=== PATIENT | female | born 1990 | race Caucasian/White ===

== ENCOUNTER 2018-11-28 20:56 | Emergency (ER) | payer MEDICAID, OTHER ==
[2018-11-28] MEDS ORDERED: KETOROLAC 30 MG/1 ML SDV IVP ONE (21:04)
[2018-11-28] MEDS ORDERED: NS 1,000 ML IV ONE (21:04)
[2018-11-28] MEDS ORDERED: DEXAMETHASONE 10 MG/ML VIAL IVP ONE (21:04)
--- NOTE | 2018-11-28 21:04 | EDPHY ---
H & P Stated Complaint: migraine all day, vomiting x2 hours Time Seen by Provider: 11/28/18 21:04 HPI/ROS: HPI CHIEF COMPLAINT: "I am having a migraine headache" HISTORY OF PRESENT ILLNESS: Patient is a 28-year-old female, she has a history of migraine headaches she presents emergency room with a frontal throbbing headache. She reports to me this feels exactly like her previous migraines. She gets this 2 to 3 times a year. She suffered from migraine headaches for many years. She states she woke up with this headache this morning. Gradually getting worse throughout the day frontal throbbing. She has associated nausea with it. She denies any neck pain, denies fever, denies visual disturbance or double vision. This is not the worst headache of her life. She denies thunderclap headache. It did not reach high intensity immediately, it was gradually getting worse. She took her tramadol that she normally takes for headache however this did not much improved her symptoms. She reports to me she has not had any neurological imaging in many many years. Past Medical History: Migraine headaches Past Surgical History: Denies recent surgical history Social History: Denies daily use of drugs alcohol tobacco. Family History: Noncontributory ROS REVIEW OF SYSTEMS: 10 Systems were reviewed and negative with the exception of the elements mentioned in the history of present illness. Exam Constitutional triage nursing summary reviewed, vital signs reviewed, awake/ alert. Eyes normal conjunctivae and sclera, EOMI, PERRLA. HENT normal inspection, atraumatic, moist mucus membranes, no epistaxis, neck supple/ no meningismus, no raccoon eyes. Respiratory clear to auscultation bilaterally, normal breath sounds, no respiratory distress, no wheezing. Cardiovascular rate normal, regular rhythm, no murmur, no edema, distal pulses normal. Gastrointestinal soft, non-tender, no rebound, no guarding, normal bowel sounds, no distension, no pulsatile mass. Genitourinary no CVA tenderness. Musculoskeletal no midline vertebral tenderness, full range of motion, no calf swelling, no tenderness of extremities, no meningismus, good pulses, neurovascularly intact. Skin pink, warm, & dry, no rash, skin atraumatic. Neurologic unremarkable neurological exam no focal neuro deficits on exam, awake, alert and oriented x 3, AAOx3, moves all 4 extremities equally, motor intact, sensory intact, CN II-XII intact, normal cerebellar, normal vision, normal speech. Psychiatric normal mood/affect. Heme/Lymph/Immune no lymphadenopathy. Differential Diagnosis: Includes but is not limited to in a particular order migraine headache, tension headache, cluster headache, encephalitis, meningitis , bleed Medical Decision Making: Plan for this patient IV establishment IV fluid bolus , migraine cocktail, CT scan head without contrast, basic labs, and re-evaluate. Re-evaluation: CT scan head without contrast negative for acute bleed or tumor. Called to me by Dr. Jones. Source: Patient - Personal History LMP (Females 10-55): Irregular Current Tetanus Diphtheria and Acellular Pertussis (TDAP): Yes - Medical/Surgical History Hx Asthma: No Hx Chronic Respiratory Disease: No Hx Diabetes: No Hx Cardiac Disease: No Hx Renal Disease: No Hx Cirrhosis: No Hx Alcoholism: No Hx HIV/AIDS: No Hx Splenectomy or Spleen Trauma: No Other PMH: Migraines - Social History Smoking Status: Never smoked Constitutional: Initial Vital Signs Temperature (C) 36.8 C 11/28/18 20:57 Heart Rate 82 11/28/18 20:57 Respiratory Rate 16 11/28/18 20:57 Blood Pressure 124/62 H 11/28/18 20:57 O2 Sat (%) 97 11/28/18 20:57 O2 Delivery Mode Room Air Allergies/Adverse Reactions: No Known Allergies Allergy (Unverified 11/28/18 21:00) Home Medications: Medication Instructions Recorded DULoxetine 11/28/18 Ibuprofen [Motrin (*)] 800 mg PO Q6-8PRN #10 tab 11/28/18 Methylphenidate 11/28/18 Promethazine HCl 25 mg PO Q6-8PRN PRN #10 tablet 11/28/18 Medical Decision Making - Diagnostics Imaging Results: Imaging Impressions Head CT 11/28/18 21:08 Impression: No acute intracranial findings. If symptoms persist and clinical suspicion warrants, consider MRI. Findings discussed with Alejandro Soria MD 11/28/2018 at 21:42. - Data Points Laboratory Results: Laboratory Results 11/28/18 21:12 11/28/18 21:12 11/28/18 11/28/18 11/28/18 21:12 21:12 21:12 WBC 11.46 10^3/uL H 10^3/uL (3.80-9.50) RBC 4.93 10^6/uL 10^6/uL (4.18-5.33) Hgb 15.1 g/dL g/dL (12.6-16.3) Hct 44.9 % % (38.0-47.0) MCV 91.1 fL fL (81.5-99.8) MCH 30.6 pg pg (27.9-34.1) MCHC 33.6 g/dL g/dL (32.4-36.7) RDW 12.9 % % (11.5-15.2) Plt Count 313 10^3/uL 10^3/uL (150-400) MPV 9.3 fL fL (8.7-11.7) Neut % (Auto) 61.6 % % (39.3-74.2) Lymph % (Auto) 28.0 % % (15.0-45.0) [place] % (Auto) 8.6 % % (4.5-13.0) Eos % (Auto) 1.0 % % (0.6-7.6) Baso % (Auto) 0.5 % % (0.3-1.7) Nucleat RBC Rel Count 0.0 % % (0.0-0.2) Absolute Neuts (auto) 7.05 10^3/uL H 10^3/uL (1.70-6.50) Absolute Lymphs (auto) 3.21 10^3/uL H 10^3/uL (1.00-3.00) Absolute Monos (auto) 0.98 10^3/uL H 10^3/uL (0.30-0.80) Absolute Eos (auto) 0.12 10^3/uL 10^3/uL (0.03-0.40) Absolute Basos (auto) 0.06 10^3/uL 10^3/uL (0.02-0.10) Absolute Nucleated RBC 0.00 10^3/uL 10^3/uL (0-0.01) Immature Gran % 0.3 % % (0.0-1.1) Immature Gran # 0.04 10^3/uL 10^3/uL (0.00-0.10) Sodium 138 mEq/L mEq/L (135-145) Potassium 4.0 mEq/L mEq/L (3.5-5.2) Chloride 105 mEq/L mEq/L (97-110) Carbon Dioxide 19 mEq/l L mEq/l (22-31) Anion Gap 14 mEq/L mEq/L (6-14) BUN 14 mg/dL mg/dL (7-23) Creatinine 0.7 mg/dL mg/dL (0.6-1.0) Estimated GFR > 60 Glucose 114 mg/dL H mg/dL (70-100) Calcium 10.0 mg/dL mg/dL (8.5-10.4) Beta HCG, Qual NEGATIVE Medications Given: Discontinued Medications Dexamethasone (Decadron Injection) 10 mg IVP EDNOW ONE Stop: 11/28/18 21:05 Last Admin: 11/28/18 21:09 Dose: 10 mg Diphenhydramine HCl (Benadryl Injection) 50 mg IVP EDNOW ONE Stop: 11/28/18 21:05 Last Admin: 11/28/18 21:09 Dose: 50 mg Sodium Chloride (Ns) 1,000 mls @ 0 mls/hr IV ONCE ONE; Wide Open PRN Reason: Protocol Stop: 11/28/18 21:05 Last Admin: 11/28/18 21:09 Dose: 1,000 mls Ketorolac Tromethamine (Toradol) 30 mg IVP EDNOW ONE Stop: 11/28/18 21:05 Last Admin: 11/28/18 21:10 Dose: 30 mg Promethazine HCl (Phenergan) 6.25 mg IVP ONCE ONE Stop: 11/28/18 21:09 Last Admin: 11/28/18 21:12 Dose: 6.25 mg Departure - Departure Disposition: Home, Routine, Self-Care Clinical Impression: Headache Condition: Good Instructions: Acute Headache (ED) Additional Instructions: 1. Drink lots of fluids stay well-hydrated. 2. Return to the emergency room if develops worsening headache, fever, vomiting 3. If you get a bad headache I do recommend 50 mg of Benadryl p.o., ibuprofen 800 mg, and Phenergan. 4. Return to the emergency room if he develops worsening symptoms Referrals: NONE *PRIMARY CARE P,. [Primary Care Provider] - As per Instructions [facility],. [Clinic] - As per Instructions Prescriptions: Ibuprofen [Motrin (*)] 800 mg PO Q6-8PRN #10 tab Promethazine HCl 25 mg PO Q6-8PRN PRN #10 tablet PRN Reason: Nausea/Vomiting, Use 1st
[2018-11-28] MEDS ORDERED: PROMETHAZINE HCL 25 MG/ML INJ IVP ONE (21:08)
[2018-11-28 21:33] LABS: PLATELET COUNT 313 10^3/uL (150-400)
[2018-11-28 23:04] VITALS: BP 108/70
== END 2018-11-28 23:04 | disposition home or self-care (01) ==
DX: R51 Headache (principal); E86.9 Volume depletion, unspecified
CPT/HCPCS: 96374; J1100; J1200; J1885; J2550